=== PATIENT | male | born 1960 | race Caucasian/White ===

== ENCOUNTER → 2016-12-03 | Outpatient (CLI) | payer OTHER ==
--- NOTE | 2016-12-18 01:09 | ECWPNPC ---
PATIENT NAME: RAMON CHRISTIANSEN : 1960 GENDER: MALE VISIT DATE: 12/03/2016 DISCHARGE DATE: 12/03/16 1628 VISIT LOCKED DATE TIME: PHYSICIAN: MATHEW ESPARZA RESOURCE: MATHEW ESPARZA REASON FOR APPOINTMENT 1. LOW BACK PAIN HISTORY OF PRESENT ILLNESS FALL RISK SCREENING: SCREENING :NO FALLS IN THE PAST YEAR 56 YEAR OLD MALE PATIENT WITH HISTORY OF CHRONIC LOW BACK PAIN. PATIENT DESCRIBES THE PAIN ACHING, BURNING, STABBING, TENDER, THROBBING, SORE, SHOOTING, AND HAVING IT ALL THE TIME WITH A PAIN SCORE OF 10/10. PATIENT REPORTS A TRAUMA TO HIS HEAD OVER 20 YEARS AGO AND SINCE THEN HIS BACK HAS HURT. MR. CHRISTIANSEN REPORTS THE PAIN PROGRESSIVELY GETTING WORSE. PATIENT STATES ANY TYPE OF ACTIVITY INCLUDING WALKING, STANDING, AND SITTING INCREASES THE PAIN IN THE LOWER BACK. PATIENT STATES THAT HEAT, ICE, AND A TENS UNIT RELIEVES THE PAIN TEMPORARILY. PATIENT DENIES UNEXPLAINABLE WEIGHT LOSS, FEVER, CHILLS, NEW CHANGES ON HIS URINARY OR BOWEL CONTROL. PAIN SCREENING: PATIENT HAS A COMPLAINT OF ACUTE OR CHRONIC PAIN :YES CURRENT MEDICATIONS TAKING HYOMAX-SL 0.125 MG TABLET SUBLINGUAL WHEN NEEDED SUBLINGUAL EVERY 4 HRS PRN TAKING PHYSICAL THERAPY 1 PT MECHANICAL EVAL & TX BW=181.2 2 XS A WEEK TAKING ASTELIN 137 MCG/SPRAY SOLUTION 2PUFFS EACH NOSTRIL NASALLY ONCE A DAY TAKING OMEPRAZOLE 40 MG CAPSULE DELAYED RELEASE 1 CAPSULE ORALLY ONCE A DAY TAKING XANAX 0.5 MG TABLET 1 TABLET ORALLY TWICE A DAY TAKING LISINOPRIL 40 MG TABLET 1 TABLET ORALLY ONCE A DAY TAKING HYDROCHLOROTHIAZIDE 12.5 MG CAPSULE 1 CAPSULE IN THE MORNING ORALLY ONCE A DAY NOT-TAKING RAMIPRIL 10 10 MG TABLET 2 TABLETS ORAL ONCE A DAY NOT-TAKING FLEXERIL 10 MG TABLET 1/2 OR 1 TABLET ORALLY EVERY BED TIME NOT-TAKING NEXIUM 40 MG CAPSULE DELAYED RELEASE 1 CAP(S) ORALLY DAILY NOT-TAKING NORCO 5-325 MG TABLET 1 TAB(S) ORALLY BID PRN, MDD=2 NOT-TAKING PAXIL 20 MG TABLET 1 TAB(S) ORALLY ONCE A DAY MEDICATION LIST REVIEWED AND RECONCILED WITH THE PATIENT PAST MEDICAL HISTORY HYPERTENSION DEPRESSION LOW BACK PAIN ALLERGIES FATHER AT AGE 45 OF A HEART ATTACK ATRIAL FIBRILLATION, WAS CARDIOVERTED IRRITABLE BOWEL SYNDROME TRAUMATIC HEAD INJURY AT WORK; WELDING CUTTING TORCH FELL ON PT'S HEAD AT WORK () CHRONIC BACK PAIN SECONDARY TO HEAD INJURY TRAUMATIC INJURY TO R ANKLE, R SHOULDER, R ARM, BROKEN NOSE; PUSHED OFF SLIDE CHILD ALLERGIES CODEINE SULFATE: NAUSEA, TOLERATES OTHER MEMBERS OF THE FAMILY SURGICAL HISTORY RIGHT ANKLE 1983 FAMILY HISTORY FATHER: 46 YRS, HEART ATTACK, DIAGNOSED WITH HEART DISEASE MOTHER: 82 YRS, HEART ATTACK, BLOOD CLOTS MATERNAL GRAND FATHER: , PROSTATE CANCER MATERNAL UNCLE: , PANCREATIC CANCER MATERNAL AUNT: , BRAIN CANCER 1 BROTHER(S) - HEALTHY. MOTHER HAD BLOOD CLOT THAT TRAVELED TO HER BRAIN, IN HOSPITAL. SOCIAL HISTORY GENERAL: TOBACCO USE ARE YOU A:NONSMOKER LUNG CANCER SCREENING SMOKING STATUS:NON SMOKER ALCOHOL SCREENING POINTS0 INTERPRETATIONNEGATIVE RECREATIONAL DRUG USE DENIES. CAFFEINE NONE. OCCUPATION: DISABLED QUALITY ASSURANCE SUPERVISOR BODY. DIET: UNREGULATED. EXERCISE: BIKES, WALKS. MARITAL STATUS: SINGLE, NO CHILDREN. [id number] L[employer] LANGUAGES SPOKEN:BENINESE EDUCATION LEVEL OF EDUCATION:NOT FINISHED COLLEGE LEARNING BARRIERS / SPECIAL NEEDS HEARING IMPAIRED?NO VISION IMPAIRED?NO COGNITIVELY IMPAIRED?NO READINESS TO LEARN?YES LEARNING PREFERENCES?YES :BOOKLETS, HANDOUTS SPECIAL DEVICES?NO ADVANCE DIRECTIVES HEALTH CARE PROXY?NO WOULD YOU LIKE MORE INFORMATION?NO DO YOU HAVE A DNR?NO WOULD YOU LIKE MORE INFORMATION?NO LIVING WILL?NO WOULD YOU LIKE MORE INFORMATION?NO POWER OF DOPER?NO WOULD YOU LIKE MORE INFORMATION?NO HOSPITALIZATION/MAJOR DIAGNOSTIC PROCEDURE MULTIPLE REVIEW OF SYSTEMS REVIEWED BY: PROVIDER: MATHEW ESPARZA MD . CONSTITUTIONAL: ANY CHANGE IN YOUR MEDICAL CONDITION? NO . CHILLS NO . FEVER NO . INFECTION: DO YOU HAVE NEW INFECTIONS? NO . DO YOU HAVE HISTORY OF MRSA? NO . MUSCULOSKELETAL: ANY NEW PATTERNS OF PAIN OR NUMBNESS? NO, PT REFERRED TO US FROM DR. BRAXTON FOR CHRONIC BACK PAIN. . SYTEMIC LUPUS NO . GASTROENTEROLOGY: ANY NEW CHANGE IN BOWEL CONTROL? NO . BARRETTS ESOPHAGUS NO . CIRRHOSIS NO . HEPATITIS NO . LIVER FAILURE NO . ACID REFLUX NO . UNEXPLAINED WEIGHT LOSS NO . GENITOURINARY: ANY NEW CHANGE IN BLADDER CONTROL? NO . IS THERE A CHANCE YOU COULD BE ? NO . HEMATOLOGY/LYMPH: DO YOU TAKE ANY BLOOD THINNERS? (FOR EXAMPLE- COUMADIN, PLAVIX, AGGRENOX, PLATEL, PRADAXA, OR XARELTO) NO . WHEN WAS YOUR LAST DOSE? DATE: TIME: . LOW PLATELET COUNT NO . SICKLE CELL DISEASE NO . VON WILLIEBRANDS NO . FACTOR V LEIDEN NO . THALLASEMIA NO . ANEMIA NO . EASY BRUISING NO . NEUROLOGY: HAVE YOU FALLEN IN THE PAST 6 MONTHS? YES, FELL ON ICE . ANY NEW EXTREMITY NUMBNESS OR WEAKNESS? NO . HEAD INJURY NO . DEMENTIA NO . CEREBRAL PALSY NO . MULTIPLE SCLEROSIS NO . DIZZINESS NO . HEADACHE NO . STROKES NO . VERTIGO NO . CARDIOLOGY: DO YOU HAVE A PACEMAKER OR DEFIBRILLATOR? NO . ANGINA NO . HEART ATTACK NO . HEART SURGERY NO . CONGESTIVE HEART FAILURE/FLUID OVERLOAD NO . CHEST PAIN NO . HIGH BLOOD PRESSURE NO . IRREGULAR HEART BEAT NO . RESPIRATORY: HAVE YOU BEEN SICK IN THE PAST WEEK? NO . FEVER NO . FLU LIKE SYMPTOMS? NO . CPAP NO . BYPAP NO . ASTHMA NO . EMPHYSEMA NO . CHRONIC LUNG DISEASES NO . SHORTNESS OF BREATH ON EXERTION NO . COUGH NO . SNORING NO . INTEGUMENTARY: DO YOU HAVE ANY RASHES OR OPEN SORES? NO . ALLERGIC/IMMUNO: ARE YOU ALLERGIC TO SHELLFISH OR IV DYE? NO . ANY NEW ALLERGIES? NO . PSYCHIATRIC: DO YOU HAVE THOUGHTS OF HURTING YOURSELF OR SOMEONE ELSE? NO . ARE YOU ABUSED, NEGLECTED, OR IN AN UNSAFE ENVIRONMENT? NO . ENDOCRINOLOGY: ARE YOU DIABETIC? NO . THYROID DISORDER NO . OTHER: DO YOU NEED ANY PRESCRIPTIONS? NO . IF YES, PLEASE LIST: ____ . ANY NEW PROBLEMS WITH YOUR MEDICATIONS? NO . WHEN DID YOU LAST EAT? ____ . WHEN DID YOU LAST DRINK? ____ . WHAT DID YOU LAST DRINK? ____ . NAME OF PERSON DRIVING YOU HOME? ____ . DO YOU HAVE ANY OTHER QUESTIONS OR CONCERNS NO . VITAL SIGNS WT 263.8 LBS, HT 66 IN, BMI 42.57 INDEX, BP 143/76 MM HG, HR 83 /MIN, RR 16 /MIN, TEMP 98.1 F, OXYGEN SAT % 96%, NA INITIALS SC 13:43. EXAMINATION : PATIENT IS ALERT O X 3 AND COOPERATIVE. TENDERNESS LOW BACK AND PARASPINAL MUSCLE GROUP. ANTALGIC GAIT. WALKS WITH CANE. PATIENT ABLE TO FLEX 30 DEGREES AND EXTEND 5 DEGREES. LEFT LEG WEAKER THEN THE RIGHT. X-RAY OF THE LUMBAR SPINE DONE ON 4/14/15 SHOWS DEGENERATIVE DISC DISEASE. ASSESSMENTS SPONDYLOSIS WITHOUT MYELOPATHY OR RADICULOPATHY, LUMBAR REGION - M47.816 (PRIMARY) TREATMENT SPONDYLOSIS WITHOUT MYELOPATHY OR RADICULOPATHY, LUMBAR REGION NOTES: WE DISCUSSED SEVERAL ISSUES WITH MR. CHRISTIANSEN'S PAIN MANAGEMENT CASE. AT THIS TIME THE PATIENT WILL START CYMBALTA AND GABAPENTIN FOR THE NEUROPATHIC PAIN. PATIENT WAS ADVISED TO START ONE MEDICATION AT A TIME AND TO STOP EITHER MEDICATION IF ANY PATIENT HAS ANY ADVERSE SIDE EFFECTS. I WOULD LIKE TO VIEW THE MRI FROM [place] BEFORE MOVING FORWARD WITH INJECTIONS. PATIENT AGREES WITH THIS PLAN AND RETURN TO THE CLINIC IN 1 MONTH. PATIENT WAS ADVISED TO BRING ALL THE MEDICATIONS TO EACH VISIT. INSTRUCTIONS WERE GIVEN, QUESTIONS WERE ANSWERED, PATIENT REPORTS UNDERSTANDING AND AGREES WITH THE PLAN. I, LORAINE THOMAS, DOCUMENTED THE ABOVE INFORMATION ACTING A SCRIBE FOR DR. ESPARZA. I HAVE REVIEWED THE ABOVE DOCUMENT, WRITTEN BY LORAINE STEELE AND I VERIFY THAT IT IS ACCURATE. DEAR DR. BRAXTON :THANK YOU FOR YOUR KIND REFERRAL OF MR. CHRISTIANSEN. YOU WANT TO DISCUSS HER CASE WITH ME PLEASE CALL ME AT THE PAIN CENTER AT [phone]. SINCERELY,MATHEW ESPARZA, MDPAIN MEDICINE. OTHERS START CYMBALTA CAPSULE DELAYED RELEASE PARTICLES, 30 MG, 1 CAPSULE, ORALLY WITH FOOD FOR PAIN, TWICE A DAY MDD2, 30 DAY(S), 60, REFILLS 1 START GABAPENTIN CAPSULE, 300 MG, 1 CAPSULE, ORALLY, BEFORE BEDTIME FOR PAIN MDD1, 30 DAY(S), 30, REFILLS 2 PREVENTIVE MEDICINE PAIN CLINIC TEACHING: MEDICATIONS NEW MEDICATIONS GABAPENTIN AND CYMBALTA DISCUSSED WITH PT. STATES HAS PREVIOUSLY TAKEN. WRITTEN INSTRUCTIONS PROVIDED. . PROCEDURE CODES FA211 ESTABILISHED PATIENT [facility] FACILITY CHARGE [id number] DOC MEDS VERIFIED W/PT OR RE G0478 PAIN ASSESS POS TOOL F/U PLAN DOC DISPOSITION & COMMUNICATION FOLLOW UP 4 WEEKS ELECTRONICALLY SIGNED BY MATHEW ESPARZA MD ON 12/17/2016 AT 12:48 PM EDT DISCLAIMER : THIS IS A VISIT SUMMARY EXTRACTED FROM THE [facility] CHART. IT IS NOT A COPY OF THE [facility] PROGRESS NOTE. MTDD
== END ==
LOC: M PAIN 14:00
PROVIDERS: ATTEND Anesthesiology
DX: G89.29 Other chronic pain (principal); M47.816 Spondylosis without myelopathy or radiculopathy, lumbar region; I10 Essential (primary) hypertension; F32.9 Major depressive disorder, single episode, unspecified; Z88.5 Allergy status to narcotic agent; Z79.899 Other long term (current) drug therapy

== ENCOUNTER → 2017-05-16 | Outpatient (CLI) | payer OTHER | LOC: M ADAMS 14:41 | DX: R05 Cough (principal) | CPT/HCPCS: 71046 ==

== ENCOUNTER → 2017-12-05 | Outpatient (REF) | payer OTHER | LOC: M SFHCADAM 11:58 | DX: E66.01 Morbid (severe) obesity due to excess calories (principal); I10 Essential (primary) hypertension ==

== ENCOUNTER → 2018-07-30 | Outpatient (REF) | payer OTHER ==
[2018-07-30 10:48] LABS: BASO % 0.5 % (0.0-1.0); EOS # 0.2 10^3/uL (0.0-0.50); EOS % 2.2 % (0.0-3.0); HEMATOCRIT 48.4 % (42.0-52.0); HEMOGLOBIN 16.4 g/dl (13.5-17.5); LYMPH # 2.4 10^3/uL (1.5-4.5); LYMPH % 27.7 % (24.0-44.0); MEAN CORPUSCULAR HEMOGLOBIN 29.6 pg (27.0-33.0); MEAN CORPUSCULAR HGB CONC 33.9 g/dl (32.0-36.5); MEAN CORPUSCULAR VOLUME 87.4 fl (80.0-96.0); MONO # 0.8 10^3/uL (0.0-0.8); MONO % 8.9 % (0.0-5.0); NEUTROPHILS # 5.2 10^3/uL (1.8-7.7); NEUTROPHILS % 60.2 % (36.0-66.0); PLATELET COUNT, AUTOMATED 247 10^3/uL (150-450); RED BLOOD COUNT 5.54 10^6/uL (4.30-6.10); WHITE BLOOD COUNT 8.6 10^3/uL (4.0-10.0)
[2018-07-30 11:05] LABS: BILIRUBIN,TOTAL 0.4 MG/DL (0.2-1.0); CALCIUM LEVEL 8.5 MG/DL (8.5-10.1); CHOLESTEROL RISK RATIO 5.763 (<5); CREATININE FOR GFR 1.34 MG/DL (0.70-1.30); FREE T4 0.8 NG/DL (0.76-1.46); GLOMERULAR FILTRATION RATE 58.1 (>56); POTASSIUM SERUM 4.9 MEQ/L (3.5-5.1); THYROID STIMULATING HORMONE 1.64 uIU/ML (0.358-3.740); TOTAL PROTEIN 7.7 GM/DL (6.4-8.2)
== END ==
LOC: M SFHCADAM 09:18
PROVIDERS: ATTEND Family Medicine
DX: E66.01 Morbid (severe) obesity due to excess calories (principal); I10 Essential (primary) hypertension